=== PATIENT | male | born 1970 | race American Indian/Alaskan Native ===

== ENCOUNTER 2019-03-09 09:40 | Emergency (ER) | payer SELFPAY ==
[2019-03-09 09:43] VITALS: BMI 23.3
--- NOTE | 2019-03-09 12:40 | ED PDOC ---
HPI: Psych/Substance Abuse Time Seen by Provider: 03/09/19 10:36 Chief Complaint (Nursing): Substance Abuse History Per: Patient, EMS Additional Complaint(s): Pt. states at 0800 today he smoked marijuana which may have been "laced with K2." Pt. states this marijuana is a lot stronger than the one he smokes daily. Offers no complaints at this time. Denies chest pain, SOB, headache, injury, abdominal pain. Past Medical History Reviewed: Historical Data, Nursing Documentation, Vital Signs Vital Signs: Last Vital Signs Temp 98.6 F 03/09/19 09:44 Pulse 80 03/09/19 09:44 Resp 17 03/09/19 09:44 BP 130/84 03/09/19 09:44 Pulse Ox 97 03/09/19 09:44 Primary Care Provider: FAMILY PROVIDER,NO - Medical History PMH: HTN - Surgical History Surgical History: No Surg Hx - Family History Family History: States: No Known Family Hx - Home Medications Home Medications: Ambulatory Orders Medication Instructions Recorded Potassium Chloride [K-Tab ER] 10 meq PO DAILY #10 tablet.er 12/19/18 - Allergies Allergies/Adverse Reactions: Allergies Allergy/AdvReac Type Severity Reaction Status Date / Time Unobtainable Allergy Verified 12/18/18 22:36 Review of Systems ROS Statement: Except As Marked, All Systems Reviewed And Found Negative Physical Exam - Physical Exam Appears: Positive for: Well, Non-toxic, No Acute Distress Head Exam: Positive for: ATRAUMATIC, NORMAL INSPECTION, NORMOCEPHALIC Skin: Positive for: Normal Color, Warm. Negative for: Rash Eye Exam: Positive for: Normal appearance Cardiovascular/Chest: Positive for: Regular Rate, Rhythm Respiratory: Positive for: Normal Breath Sounds. Negative for: Respiratory Distress Gastrointestinal/Abdominal: Positive for: Soft. Negative for: Tenderness Neurological/Psych: Positive for: Awake (sleeping upon entering room but arousable to not loud verbal stimuli), Alert, Oriented (x3), Mood/Affect (calm, cooperative), Gait (steady, unassisted) - ECG O2 Sat by Pulse Oximetry: 97 - Progress ED Course And Treament: FSBS, drug screen ordered. Disposition - Clinical Impression Clinical Impression: Substance abuse - Patient ED Disposition Is Patient to be Admitted: No - Disposition Disposition: Routine/Home Disposition Time: 16:30 Condition: STABLE Instructions: Polysubstance Abuse Forms: [facility] (Algerian)
[2019-03-09 14:01] VITALS: PULSE 60
[2019-03-09 15:32] LABS: BARBITURATES, UR NEGATIVE (NEGATIVE); BENZODIAZEPINES, UR NEGATIVE (NEGATIVE); OPIATES, UR NEGATIVE (NEGATIVE); PHENCYCLIDINE, UR NEGATIVE (NEGATIVE)
[2019-03-09 16:37] VITALS: BP 152/91; RESP 18; TEMP 98
[2019-03-12 00:18] VITALS: O2SAT 97
== END 2019-03-09 16:35 | disposition home or self-care (01) ==
LOC: H.ER 09:40
DX: F19.10 Other psychoactive substance abuse, uncomplicated (principal)
CPT/HCPCS: 82948; 99283; G0480